=== PATIENT | male | born 1950 | race Caucasian/White ===

== ENCOUNTER 2018-04-28 07:20 | Day surgery (SDC) | payer OTHER ==
[2018-04-26 12:45] VITALS: BMI 32.8
[2018-04-28 08:48] VITALS: TEMP 97.8
[2018-04-28 09:57] VITALS: BP 136/70; PULSE 52
--- NOTE | 2018-05-01 16:16 | PATH ---
Surgical Pathology Report Patient Name: DANYEL MORALES [facility]. Rec. #: [id number] /Age/Gender: 1950 (Age: 67) / M Account: [id number] Location: U-ENDOSCOPY Taken: 04/28/2018 Received: 04/28/2018 Reported: 05/01/2018 Physicians: Rachel Lopez M.D. Specimen(s) Received A: BX ANTRUM B: BX ESOPHAGUS C: POLYP RECTUM D: POLYP SIGMOID COLON Clinical History History of colon polyps, GERD Postoperative diagnosis: Antral gastritis, hiatal hernia, GERD, colon polyps, diverticulosis Final Diagnosis A. STOMACH, ANTRUM, BIOPSY: GASTRIC ANTRAL MUCOSA WITH MILD CHRONIC GASTRITIS. IMMUNOHISTOCHEMICAL STAIN FOR H. PYLORI IS NEGATIVE. B. ESOPHAGUS AND GE JUNCTION, BIOPSY: SQUAMOCOLUMNAR MUCOSA WITH MODERATE CHRONIC INFLAMMATION AND CHANGES OF MODERATE REFLUX ESOPHAGITIS. NO INTESTINAL METAPLASIA OR DYSPLASIA IDENTIFIED. C. RECTUM, POLYP, BIOPSY: HYPERPLASTIC POLYP. D. SIGMOID COLON, POLYP, BIOPSY: HYPERPLASTIC POLYP. Electronically Signed Jany Schwarz M.D. Gross Description A. Received in formalin, labeled "antrum" are 3 martinez, irregular portions of soft tissue ranging from 0.3-0.4 cm. in greatest dimension. The specimens are submitted in toto in one cassette. B. Received in formalin, labeled "esophagus GE junction" are 5 martinez, irregular portions of soft tissue ranging from 0.2-0.6 cm. in greatest dimension. The specimens are submitted in toto in one cassette. C. Received in formalin, labeled "polyp rectum" are 2 martinez, irregular portions of soft tissue measuring 0.4 and 0.5 cm. in greatest dimension. The specimens are submitted in toto in one cassette. D. Received in formalin, labeled "polyp sigmoid" is a martinez, irregular portion of soft tissue measuring 0.2 cm. in greatest dimension. The specimen is submitted in toto in one cassette. 04/28/201804/28/2018
== END 2018-04-28 09:50 | disposition home or self-care (01) ==
LOC: JASU-ENDO 07:20
PROVIDERS: ATTEND Internal Medicine Gastroenterology
PROC: 0DBN8ZX Excision of Sigmoid Colon, Via Natural or Artificial Opening Endoscopic, Diagnostic (ICD-10-PCS; 2018-04-28)
PROC: 0DBP8ZX Excision of Rectum, Via Natural or Artificial Opening Endoscopic, Diagnostic (ICD-10-PCS; principal; 2018-04-28 08:00)
DX: Z12.11 Encounter for screening for malignant neoplasm of colon (principal); Z86.010 Personal history of colon polyps; K62.1 Rectal polyp; D12.5 Benign neoplasm of sigmoid colon; K57.30 Diverticulosis of large intestine without perforation or abscess without bleeding; K64.8 Other hemorrhoids
CPT/HCPCS: 88305-TC; 88342-TC

== ENCOUNTER 2020-01-29 15:34 | Emergency (ER) | payer OTHER ==
[2020-01-29 15:51] VITALS: BP 133/76; PULSE 64; BMI 32.5
[2020-01-29] MEDS ORDERED: RABIES VACCINE (PCEC)/PF 2.5 UNIT/VIAL IM ONE ×2 (16:22→17:11)
[2020-01-29] MEDS ORDERED: RABIES IMMUNE GLOBULIN 300 UNITS/1 ML VIAL IM ONE (16:22)
[2020-01-29] MEDS ORDERED: RABIES IMMUNE GLOBULIN 300 UNITS/1 ML VIAL ONE (17:11)
== END 2020-01-29 18:11 | disposition home or self-care (01) ==
LOC: JERFT 15:34
PROC: 3E0234Z Introduction of Serum, Toxoid and Vaccine into Muscle, Percutaneous Approach (ICD-10-PCS; principal; 2020-01-29)
DX: S61.432A Puncture wound without foreign body of left hand, initial encounter (principal)
CPT/HCPCS: 73130-TC-LT-FY; 90375; 90675; 99284-25

== ENCOUNTER 2020-02-01 09:57 | Emergency (ER) | payer OTHER ==
[2020-02-01 10:10] VITALS: BP 160/76; PULSE 65; TEMP 97.8; BMI 32.3
[2020-02-01] MEDS ORDERED: RABIES VACCINE (PCEC)/PF 2.5 UNIT/VIAL IM ONE (10:17)
== END 2020-02-01 11:00 | disposition home or self-care (01) ==
LOC: JERFT 09:57
PROC: 3E0234Z Introduction of Serum, Toxoid and Vaccine into Muscle, Percutaneous Approach (ICD-10-PCS; principal; 2020-02-01)
DX: S61.452D Open bite of left hand, subsequent encounter (principal); Z20.3 Contact with and (suspected) exposure to rabies
CPT/HCPCS: 90675; 99283-25

== ENCOUNTER 2020-02-05 09:51 | Emergency (ER) | payer OTHER ==
[2020-02-05 09:55] VITALS: BP 145/97; PULSE 66; TEMP 98.1; BMI 32.3
[2020-02-05] MEDS ORDERED: RABIES VACCINE (PCEC)/PF 2.5 UNIT/VIAL IM ONE ×2 (10:17→10:22)
== END 2020-02-05 10:35 | disposition home or self-care (01) ==
LOC: JER 09:51
PROC: 3E0234Z Introduction of Serum, Toxoid and Vaccine into Muscle, Percutaneous Approach (ICD-10-PCS; principal; 2020-02-05)
DX: Z29.14 Encounter for prophylactic rabies immune globulin (principal)
CPT/HCPCS: 90675; 99284-25

== ENCOUNTER 2020-02-12 09:50 | Emergency (ER) | payer OTHER ==
[2020-02-12 10:04] VITALS: BP 138/85; PULSE 65; TEMP 97.9; BMI 32.3
[2020-02-12] MEDS ORDERED: RABIES VACCINE (PCEC)/PF 2.5 UNIT/VIAL IM ONE ×2 (10:09→10:27)
== END 2020-02-12 10:38 | disposition home or self-care (01) ==
LOC: JERFT 09:50 → JER 09:50 → JERFT 10:38
PROC: 3E0234Z Introduction of Serum, Toxoid and Vaccine into Muscle, Percutaneous Approach (ICD-10-PCS; principal; 2020-02-12)
DX: Z20.3 Contact with and (suspected) exposure to rabies (principal)
CPT/HCPCS: 90675; 99283-25

== ENCOUNTER 2021-02-17 10:47 | Observation (INO) | payer OTHER ==
[2021-02-17 14:53] LABS: BASO % 0.4 % (0-2.0); EOS % 0.4 % (0-4.5); HEMATOCRIT 42.9 % (35.4-49); HEMOGLOBIN 14.8 GM/dL (11.7-16.9); LYMPH % 9.5 % (8-40); MCH 30.4 pg (25.7-33.7); MCHC 34.6 g/dl (32.0-35.9); MEAN CELL VOLUME 87.8 fl (80-96); MEAN PLT VOLUME 7.7 fl (7.5-11.1); MONO % 3.3 % (3.8-10.2); NEUT % 86.4 % (42.8-82.8); PLATELET COUNT 262 10^3/uL (134-434); RBC 4.88 M/mm3 (4.00-5.60); RDW 13.7 % (11.9-15.9); WHITE BLOOD COUNT 11.1 K/mm3 (4.0-10.0)
[2021-02-17 16:47] LABS: CHLORIDE 107 mmol/L (98-107); SODIUM 141 mmol/L (136-145)
[2021-02-17 16:49] LABS: CALCIUM 8.5 mg/dL (8.5-10.1)
[2021-02-17 16:50] LABS: ALBUMIN 3.2 g/dl (3.4-5.0); ANION GAP 10 MMOL/L (8-16); BLOOD UREA NITROGEN 16.8 mg/dL (7-18); CO2 25 mmol/L (21-32); GLUCOSE,RANDOM 149 mg/dL (74-106); MAGNESIUM 2.2 mg/dL (1.8-2.4)
[2021-02-17 16:53] LABS: SGOT/AST 17 U/L (15-37); SGPT/ALT 24 U/L (13-61)
[2021-02-17 16:54] LABS: BILIRUBIN,TOTAL 0.5 mg/dL (0.2-1)
[2021-02-17 16:55] LABS: TOT PROT 6.6 g/dl (6.4-8.2)
[2021-02-17 16:56] LABS: ALK PHOS 67 U/L (45-117)
[2021-02-17 16:58] LABS: N-TERMINAL BNP 112.8 pg/ml (5-125)
[2021-02-17 20:22] LABS: EPI CELLS 1 /uL (0-25.1); HYALINE CASTS 0 /uL (0-3.1); URINE APPEARANCE CLEAR; URINE BACTERIA 3 /uL (0-1359); URINE BILIRUBIN NEGATIVE (NEGATIVE); URINE COLOR YELLOW; URINE GLUCOSE (UA) NEGATIVE (NEGATIVE); URINE KETONE NEGATIVE (NEGATIVE); URINE LEUK ESTERASE NEGATIVE (NEGATIVE); URINE NITRITE NEGATIVE (NEGATIVE); URINE PROTEIN NEGATIVE (NEGATIVE); URINE RBC 12 /uL (0-23.9); URINE UROBILINOGEN 0.2 mg/dL (0.2-1.0); URINE WBC 1 /uL (0-25.8)
[2021-02-18 02:51] VITALS: PULSE 54; BMI 34.8
[2021-02-18] MEDS ORDERED: ACETAMINOPHEN 325 MG TABLET (FP) PO PRN (03:13)
[2021-02-18] MEDS ORDERED: MAG HYDROX/AL HYDROX/SIMETH 30 ML UNIT-DOSE CUP PO PRN (03:13)
[2021-02-18 04:15] LABS: BASO % 0.6 % (0-2.0); EOS % 2.3 % (0-4.5); HEMATOCRIT 41.1 % (35.4-49); HEMOGLOBIN 14.2 GM/dL (11.7-16.9); LYMPH % 31.2 % (8-40); MCHC 34.5 g/dl (32.0-35.9); MEAN CELL VOLUME 86.7 fl (80-96); MONO % 7.6 % (3.8-10.2); NEUT % 58.3 % (42.8-82.8); PLATELET COUNT 252 10^3/uL (134-434); RBC 4.73 M/mm3 (4.00-5.60); RDW 13.2 % (11.9-15.9); WHITE BLOOD COUNT 8.9 K/mm3 (4.0-10.0)
[2021-02-18 04:36] LABS: CHLORIDE 108 mmol/L (98-107); SODIUM 140 mmol/L (136-145)
[2021-02-18 04:39] LABS: ANION GAP 5 MMOL/L (8-16); BLOOD UREA NITROGEN 18.8 mg/dL (7-18); CALCIUM 8.6 mg/dL (8.5-10.1); CO2 26 mmol/L (21-32); GLUCOSE,RANDOM 99 mg/dL (74-106)
[2021-02-18 06:44] VITALS: TEMP 97.5
[2021-02-18 09:51] VITALS: BP 125/72
[2021-02-18] MEDS ORDERED: PANTOPRAZOLE 40 MG TABLET PO SCH (10:00)
[2021-02-18] MEDS ORDERED: amLODIPine BESYLATE 5 MG TABLET (FP) PO SCH (10:00)
[2021-02-18 14:14] LABS: CHOLESTEROL 152 mg/dL (50-200)
[2021-02-18 14:15] LABS: LDL CHOLESTEROL (ONLY SJRH) 88 mg/dL (5-100); TRIGLYCERIDES 163 mg/dL (0-150)
[2021-02-18 14:23] LABS: HDL CHOLESTEROL 36 mg/dL (40-60)
[2021-02-18] MEDS ORDERED: ATORVASTATIN CA 20 MG TABLET (FP) PO SCH (22:00)
== END 2021-02-18 15:04 | disposition home or self-care (01) ==
LOC: JER 10:47 → JERBED 17:55 → J4S 21:04
PROVIDERS: ATTEND Internal Medicine
DX: R55 Syncope and collapse (principal); I10 Essential (primary) hypertension; E78.5 Hyperlipidemia, unspecified; K21.9 Gastro-esophageal reflux disease without esophagitis; A04.8 Other specified bacterial intestinal infections; K57.90 Diverticulosis of intestine, part unspecified, without perforation or abscess without bleeding; Z87.891 Personal history of nicotine dependence; R42 Dizziness and giddiness; S61.452A Open bite of left hand, initial encounter; Z29.14 Encounter for prophylactic rabies immune globulin; Z23 Encounter for immunization; Z20.3 Contact with and (suspected) exposure to rabies; J70.5 Respiratory conditions due to smoke inhalation; W55.01XA Bitten by cat, initial encounter; Y93.89 Activity, other specified; Y92.89 Other specified places as the place of occurrence of the external cause; Z29.9 Encounter for prophylactic measures, unspecified; Z85.828 Personal history of other malignant neoplasm of skin; Z85.46 Personal history of malignant neoplasm of prostate
CPT/HCPCS: 36415; 70450-TC; 71046-TC-FY; 80048; 80053; 80061; 81003; 82550; 83735; 83880; 84443; 84484; 85025; 87086; 93005; 93010; 99285-25; C9803; G0378; U0003; U0005

== ENCOUNTER 2023-09-30 04:49 | Day surgery (SDC) | payer OTHER ==
[2023-09-28 11:16] VITALS: BMI 32.9
[2023-09-30 09:10] VITALS: RESP 16
[2023-09-30 09:53] VITALS: BP 113/67; PULSE 60; TEMP 98
== END 2023-09-30 09:52 | disposition home or self-care (01) ==
LOC: JASU-ENDO 04:49
PROVIDERS: ATTEND Internal Medicine Gastroenterology
PROC: 0DBN8ZX Excision of Sigmoid Colon, Via Natural or Artificial Opening Endoscopic, Diagnostic (ICD-10-PCS; 2023-09-30)
PROC: 0DB98ZX Excision of Duodenum, Via Natural or Artificial Opening Endoscopic, Diagnostic (ICD-10-PCS; 2023-09-30)
PROC: 0DB68ZX Excision of Stomach, Via Natural or Artificial Opening Endoscopic, Diagnostic (ICD-10-PCS; 2023-09-30)
PROC: 0DB48ZX Excision of Esophagogastric Junction, Via Natural or Artificial Opening Endoscopic, Diagnostic (ICD-10-PCS; 2023-09-30)
PROC: 0DBH8ZX Excision of Cecum, Via Natural or Artificial Opening Endoscopic, Diagnostic (ICD-10-PCS; principal; 2023-09-30 08:00)
DX: Z12.11 Encounter for screening for malignant neoplasm of colon (principal); D12.0 Benign neoplasm of cecum; D12.5 Benign neoplasm of sigmoid colon; K57.30 Diverticulosis of large intestine without perforation or abscess without bleeding; K64.8 Other hemorrhoids; K29.00 Acute gastritis without bleeding; K44.9 Diaphragmatic hernia without obstruction or gangrene; K29.80 Duodenitis without bleeding; K31.A11 Gastric intestinal metaplasia without dysplasia, involving the antrum
CPT/HCPCS: 88305-TC; 88342-TC